=== PATIENT | female | born 1985 | race Caucasian/White ===

== ENCOUNTER 2021-02-17 16:18 | Emergency (ER) | payer OTHER ==
[~2021-02-17] VITALS: Ht 162.6 cm; Wt 113.6 kg
[2021-02-17] MEDS ORDERED: LIDO:MAALOX 1:1 20 ML SINGLE DOSE. PO ONE (16:45)
[2021-02-17 17:06] LABS: BASO # 0.1 x10^3/uL (0.0-0.2); BASO % 1 % (0-3); EOS # 0.1 x10^3/uL (0.0-0.7); EOS % 1 % (0-3); HEMATOCRIT 40.6 % (36.0-47.0); HEMOGLOBIN 13.4 g/dL (12.0-15.5); LYMPH # 4.6 x10^3/uL (1.0-4.8); LYMPH % 37 % (24-48); MEAN CORPUSCULAR HEMOGLOBIN 29 pg (25-35); MEAN CORPUSCULAR HGB CONC 33 g/dL (31-37); MEAN CORPUSCULAR VOLUME 88 fL (79-100); MONO # 0.8 x10^3/uL (0.0-1.1); MONO % 7 % (0-9); NEUT % 55 % (31-73); PLATELET COUNT 236 x10^3/uL (140-400); RED BLOOD COUNT 4.63 x10^6/uL (3.50-5.40); RED CELL DISTRIBUTION WIDTH 13.9 % (11.5-14.5); WHITE BLOOD COUNT 12.6 x10^3/uL (4.0-11.0)
[2021-02-17 17:09] LABS: CALCIUM 8.8 mg/dL (7.8-11.2); CREATININE 1.1 mg/dL (0.6-1.0); POTASSIUM 3.5 mmol/L (3.5-5.1)
[2021-02-17 17:15] LABS: ALBUMIN 3.7 g/dL (2.5-4.9); TOTAL BILIRUBIN 0.3 mg/dL (0.2-1.0); TOTAL PROTEIN 7.5 g/dL (6.4-8.2)
--- NOTE | 2021-02-17 17:15 | RAD ---
INDICATION: Reason: chest pain / Spl. Instructions: / History: COMPARISON: None. FINDINGS: Single view of chest obtained. Left lung base is not well evaluated secondary to overlying structures but no definite consolidation elsewhere in the lungs. Cardiac silhouette is unremarkable. IMPRESSION: * No definite focal airspace consolidation. Electronically signed by: Kristopher Gramajo MD (02/17/2021 5:12 PM) [id number]
--- NOTE | 2021-02-17 17:21 | PHYS DOC ---
General Adult EDM: Chief Complaint: CHEST PAIN HPI: HPI: Patient is a 35-year-old female who presents with epigastric pain along with chest pressure. Patient is stating that "I feel like I need to burp but I cannot". Patient just finished antibiotics for an upper respiratory infection. Denies shortness of breath, nausea/vomiting/diarrhea, fever. Patient appears very anxious. Patient takes medication for GERD and anxiety. Denies family history. Review of Systems: Review of Systems: Constitutional: Denies fever or chills Eyes: Denies change in visual acuity HENT: Denies nasal congestion or sore throat Respiratory: Denies cough or shortness of breath Cardiovascular: Denies chest pain or edema GI: Denies abdominal pain, nausea, vomiting, bloody stools or diarrhea : Denies dysuria Musculoskeletal: Denies back pain or joint pain Integument: Denies rash Neurologic: Denies headache, focal weakness or sensory changes Endocrine: Denies polyuria or polydipsia Lymphatic: Denies swollen glands Psychiatric: Denies depression or anxiety Current Medications: Current Meds: Current Medications Medications (Trade) Dose Ordered Sig/Deja Start Time Stop Time Status Last Admin Dose Admin Lorazepam (Ativan Inj) 1 mg 1X ONCE 02/17/21 16:45 02/17/21 16:46 UNV Multi-Ingredient Mouthwash/Gargle (Gi Cocktail) 20 ml 1X ONCE 02/17/21 16:45 02/17/21 16:46 UNV Physical Exam: PE: ROS At least 10 ROS systems have been reviewed and are negative except as documented in the HPI. General: Negative except as outlined in HPI above. Skin: Negative except as outlined in HPI above. HEENT: Negative except as outlined in HPI above. Neck: Negative except as outlined in HPI above. Respiratory: Negative except as outlined in HPI above.. Cardiovascular: Negative except as outlined in HPI above. Abdomen: Negative except as outlined in HPI above. : Negative except as outlined in HPI above. Back/MSK: Negative except as outlined in HPI above. Neuro: Negative except as outlined in HPI above. Psych: Negative except as outlined in HPI above. EKG: EKG: Sinus rhythm. Heart rate 97 bpm. No STEMI. Read by Dr. Barrett at 1814 [] Radiology/Procedures: Radiology/Procedures: []INDICATION: Reason: chest pain / Spl. Instructions: / History: COMPARISON: None. FINDINGS: Single view of chest obtained. Left lung base is not well evaluated secondary to overlying structures but no definite consolidation elsewhere in the lungs. Cardiac silhouette is unremarkable. IMPRESSION: * No definite focal airspace consolidation. Electronically signed by: Kristopher Gramajo MD (02/17/2021 5:12 PM) [id number] Heart Score: C/O Chest Pain: No HEART Score for Chest Pain: HEART Score for Chest Pain Response (Comments) Value History Slighlty/Non-Suspicious 0 ECG Normal 0 Age < 45 0 Risk Factors No Risk Factors 0 Troponin < Normal Limit 0 Total 0 Risk Factors: Risk Factors: DM, Current or recent (<one month) smoker, HTN, HLP, family history of CAD, obesity. Risk Scores: Score 0 - 3: 2.5% MACE over next 6 weeks - Discharge Home Score 4 - 6: 20.3% MACE over next 6 weeks - Admit for Clinical Observation Score 7 - 10: 72.7% MACE over next 6 weeks - Early Invasive Strategies Course & Med Decision Making: Course & Med Decision Making Pertinent Labs and Imaging studies reviewed. (See chart for details) [] 35-year-old female presents with epigastric pain and chest pressure that started at 2 PM today. Patient is appears very anxious. Patient reports history of anxiety which she currently takes Xanax at home for. Along with GERD. Patient given a GI cocktail and Ativan to help with symptoms. EKG shows sinus r hythm. Heart rate 69 bpm. Chest x-ray is unremarkable. Troponin is negative. Heart score of 0. All labs unremarkable. Patient most likely had anxiety attack along with GERD. Discussed results with patient. Patient states that her epigastric pain and anxiety have improved. Patient informed RN she had a headache and was concerned about a migraine. IM Toradol, Zofran, Benadryl ordered to treat headache. Advised patient she should follow-up with her PCP in the next couple of days. Patient should drink plenty of fluids. Discussed return precautions. Patient is hemodynamically stable upon disposition. Dragon Disclaimer: Lorraine Disclaimer: This electronic medical record was generated, in whole or in part, using a voice recognition dictation system. Departure Departure: Impression: Primary Impression: Anxiety Additional Impressions: GERD (gastroesophageal reflux disease) Qualified Codes: K21.9 - Gastro-esophageal reflux disease without esophagitis Chest pressure Disposition: HOME / SELF CARE / HOMELESS Condition: STABLE Referrals: LEIGH SAEZ MD (PCP) Patient Instructions: Anxiety and Panic Attacks Additional Instructions: You are seen in the emergency room for epigastric pain. All of your labs were unremarkable. Your anxiety was treated along with your acid reflux. Your symptoms improved after medication. Please follow-up with your PCP in the next couple of days for further management. Return to emergency room for worsening symptoms or concerns. EMERGENCY DEPARTMENT GENERAL DISCHARGE INSTRUCTIONS Thank you for coming to [facility] (ED) today and trusting us with you care. We trust that you had a positivie experience in our Emergency Department. If you wish to speak to the department management, you may call the director at [phone]. YOUR FOLLOW UP INSTRUCTIONS ARE FOLLOWS: 1. Do you have a private Doctor? If you do not have a private doctor, please ask for a resource list of physicians or clinics that may be able to assist you with follow up care. 2. The Emergency Physician has interpreted your x-rays. The X-Ray specialist will also review them. If there is a change in the findings, you will be notified in 48 hours when at all possible. 3. A lab test or culture has been done, your results will be reviewed and you will be notified if you need a change in treatment. ADDITIONAL INSTRUCTIONS AND INFORMATION: 1. Your care today has been supervised by a physician who is specially trained in emergency care. Many problems require more than one evaluation for a complete diagnosis and treatment. We recommend that you schedule your follow up appointment as recommended to ensure complete treatment of you illness or injury. If you are unable to obtain follow up care and continue to have a problem, or if your condition worsens, we recommend that you return to the ED. 2. We are not able to safely determine your condition over the phone nor are we able to give sound medical advice over the phone. For these safety reasons, if you call for medical advice we will ask you to come to the ED for further evaluation. 3. If you have any questions regarding these discharge instructions please call the ED at [phone]. SAFETY INFORMATION: In the interest of safety, wellness, and injury prevention; we encourage you to wear your sealbelt, if you smoke; quite smoking, and we encourage family to use a protective helmet for bicycling and other sporting events that present an increased risk for head injury. IF YOUR SYMPTOMS WORSEN OR NEW SYMPTOMS DEVELOP, OR YOU HAVE CONCERNS ABOUT YOUR CONDITION; OR IF YOUR CONDITION WORSENS WHILE YOU ARE WAITING FOR YOUR FOLLOW UP APPOINTMEN T; EITHER CONTACT YOUR PRIMARY CARE DOCTOR, THE PHYSICIAN WHOSE NAME AND NUMBER YOU WERE GIVEN, OR RETURN TO THE ED IMMEDIATELY. TIANA GRAY APRN Feb 17, 2021 17:21
[2021-02-17 17:22] LABS: GFR 56.9
--- NOTE | 2021-02-17 17:45 | EKG ---
[address] [address] Test Date: 2021-02-17 Test Time: 16:19:53 Pat Name: FROYLAN CASTILLO Department: Room: Gender: F Speech Communication Instructor: : [id number] Requested By: TIANA GRAY Order Number: [id number] Reading MD: Jose M Chaparro Measurements Intervals Beals Rate: 69 P: 132 WY: 146 QRS: 166 QRSD: 84 T: 175 QT: 376 QTc: 404 Interpretive Statements SINUS RHYTHM ABNORMAL RIGHT AXIS DEVIATION T ABNORMALITY IN HIGH LATERAL LEADS INFERIOR LEADS ABNORMAL ECG RI6.02 No previous ECG available for comparison Electronically Signed On 02-18-2021 12:42:09 CDT by Jose M Chaparro
[2021-02-17 17:59] VITALS: BP 193/104
[2021-02-17] MEDS ORDERED: IBUPROFEN 600 MG TABLET. PO ONE (18:00)
[2021-02-17] MEDS ORDERED: KETOROLAC 15 MG/ML VIAL. IVP ONE (18:15)
[2021-02-17] MEDS ORDERED: diphenhydrAMINE 50 MG/ML VIAL IVP ONE (18:15)
== END 2021-02-17 19:01 | disposition home or self-care (01) ==
LOC: EDBD 16:18 → ER 16:18
DX: K21.9 Gastro-esophageal reflux disease without esophagitis (principal); F41.9 Anxiety disorder, unspecified; R07.89 Other chest pain
CPT/HCPCS: 36415; 71045; 80053; 84484; 85025; 93005; 96374; 96375; 99285; J1200; J1885; J2060